=== PATIENT | female | born 1995 | race Caucasian/White ===

== ENCOUNTER 2019-08-05 19:49 | Emergency (ER) | payer OTHER ==
[2019-08-05 19:54] VITALS: BP 132/64
--- NOTE | 2019-08-05 20:23 | ER Document Report ---
HPI - HPI Patient complains to provider of: anxiety Time Seen by Provider: 08/05/19 20:07 Pain Level: Denies Context: 23-year-old female presents the emergency department with chief complaint of anxiety depression. Patient states that she is a spouse and her is deployed to an area where they cannot contact each other. She said that she has been struggling this for years and she said that she did not know what to do but said she needed help. Patient adamantly denies that she does not want to harm herself or harm others. No thoughts or plans of suicide. Patient states that she does have a mental health appointment on August 16 but stated that she needed something in the interim. Patient said that in the past she was prescribed Zoloft but stopped taking it abruptly on her own because she was having side effects from it. Patient denies any other symptoms. - REPRODUCTIVE Reproductive: DENIES: : Past Medical History - Social History Smoking Status: Never Smoker Frequency of alcohol use: Rare Drug Abuse: None Family History: None Patient has suicidal ideation: No Patient has homicidal ideation: No Vertical Provider Document - CONSTITUTIONAL Notes: PHYSICAL EXAMINATION: Reviewed vital signs and charting by RN GENERAL: Alert, interacts well. No acute distress. HEAD: Normocephalic, atraumatic. EYES: Pupils equal and round. Extraocular movements intact. ENT: Oral mucosa moist, tongue midline. NECK: Full range of motion. Trachea midline. LUNGS: Clear to auscultation bilaterally, no wheezes, rales, or rhonchi. No respiratory distress. HEART: Regular rate and rhythm. No murmur ABDOMEN: soft, non-tender. No distention. Bowel sounds present EXTREMITIES: Moves all 4 extremities spontaneously. No edema, No cyanosis. PSYCH: Normal affect, tearful, depressed mood, linear thought process SKIN: Warm, dry, normal turgor. No rashes or lesions noted. Course - Re-evaluation Re-evalutation: 08/05/19 20:22 Discussed with patient at length her options. She denies SI/HI and denies any auditory or visual hallucinations. She is just seeking help as she feels depressed and has anxiety. I told her that she could stay here voluntarily until the morning and see the mental health team or she could go home tonight and then return in the morning and see the mental health team then. She opted to discharge - Vital Signs Vital signs: Temp Pulse Resp BP Pulse Ox 98.2 F 72 16 132/64 H 100 08/05/19 19:53 08/05/19 19:53 08/05/19 19:53 08/05/19 19:53 08/05/19 19:53 Discharge - Discharge Clinical Impression: Anxiety Condition: Good Disposition: HOME, SELF-CARE Instructions: Anxiety ([facility]) Additional Instructions: Please return to the emergency department tomorrow morning and check in so the emergency department mental health team can be consulted and assist you with services and/or medications. If in the meantime you start feeling worse, you have thoughts of harming herself or harming others, or you have any other concerns.
== END 2019-08-05 20:30 | disposition home or self-care (01) ==
LOC: ER 19:49
DX: F41.9 Anxiety disorder, unspecified (principal); F32.9 Major depressive disorder, single episode, unspecified; T43.226A Underdosing of selective serotonin reuptake inhibitors, initial encounter; Z91.128 Patient's intentional underdosing of medication regimen for other reason; Z91.14 Patient's other noncompliance with medication regimen; Z63.79 Other stressful life events affecting family and household
CPT/HCPCS: 99283

== ENCOUNTER 2019-08-06 07:06 | Emergency (ER) | payer OTHER ==
--- NOTE | 2019-08-06 08:23 | ER Document Report ---
ED General - General TRAVEL OUTSIDE OF THE [place] IN LAST 30 DAYS: No - General Chief Complaint: Anxiety Stated Complaint: ANXIETY Time Seen by Provider: 08/06/19 07:41 Primary Care Provider: [facility] [Outside] - Follow up as needed - HPI Notes: Patient is a 23-year-old female who presents to the emergency department for evaluation of anxiety. She was actually seen here last night, had laboratory investigations performed, was medically cleared. She was told to return here for her anxiety. She states is been a long-standing issue. In the past she was placed on Zoloft. She states she thought it was helping at the first, but she states "then I started to feel nothing, then I started to feel worse." She took herself off of that medication. She is been off it for approximately 6 to 8 months. She denies any suicidal or homicidal ideation. No visual or auditory hallucination. 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 She has been in therapy in the past. She is just looking for help with her anxiety at this time, is amenable to the idea of medications if necessary. (DORIS MORALES) - Related Data Allergies/Adverse Reactions: cephalexin [From Keflex] Allergy (Verified 08/06/19 07:14) Past Medical History - General Information source: Patient - Social History Smoking Status: Never Smoker Chew tobacco use (# tins/day): No Frequency of alcohol use: Occasional Drug Abuse: None Family History: None Patient has suicidal ideation: No Patient has homicidal ideation: No Psychiatric Medical History: Reports: Hx Anxiety, Hx Depression Past Surgical History: Reports: Hx Orthopedic Surgery - R ankle arthroscopy Review of Systems - Review of Systems Constitutional: No symptoms reported EENT: No symptoms reported Cardiovascular: No symptoms reported Respiratory: No symptoms reported Gastrointestinal: No symptoms reported Genitourinary: No symptoms reported Musculoskeletal: No symptoms reported Skin: No symptoms reported Neurological/Psychological: See HPI Physical Exam - Vital signs Vitals: Temp Pulse Resp BP Pulse Ox 97.6 F 74 16 115/66 100 08/06/19 07:10 08/06/19 07:10 08/06/19 07:10 08/06/19 07:10 08/06/19 07:10 - Notes Notes: Vital signs reviewed, please refer to chart. Head is normocephalic, atraumatic. Pupils equal round, reactive to light. Neck is supple without meningismus. Heart is regular rate and rhythm. Lungs are clear to auscultation bilaterally. Abdomen is soft, nontender, normoactive bowel sounds throughout. Extremities without cyanosis, clubbing. Posterior calves are nontender. Peripheral pulses are equal. Skin is warm and dry. Patient is pleasant, cooperative, makes good eye contact. (DORIS MORALES) Course - Re-evaluation Re-evalutation: 08/06/19 08:23 Patient presents the emergency department for evaluation. She was actually seen here last night. Her vital signs are unremarkable. She is not suicidal or homicidal. She just needs help with her anxiety. Patient is medically clear. Awaiting psychosocial evaluation. 08/06/19 13:58 Patient has psychosocial evaluation. Celexa recommended. She is outpatient counseling on scheduled. Patient feels stable for discharge. (DORIS MORALES) - Vital Signs Vital signs: Temp Pulse Resp BP Pulse Ox 97.6 F 74 16 115/66 100 08/06/19 07:10 08/06/19 07:10 08/06/19 07:10 08/06/19 07:10 08/06/19 07:10 Discharge - Discharge Clinical Impression: Anxiety Condition: Stable Disposition: HOME, SELF-CARE Additional Instructions: You have been evaluated by both medical and behavioral health teams and have been deemed appropriate for discharge. Medication recommendations have been provided. Please follow up with your identified providers, [facility], for medication management and [facility] for mental health services. You have been provided with a community mental health resource list. Anxiety The physician feels that some of your health problems are being caused by anxiety. Anxiety affects your health in many ways. Anxiety alone can cause palpitations, sweats, chest pains, abdominal pains, shortness of breath, and headaches. It contributes to ulcer disease, high blood pressure, irritable bowel syndrome, and has been shown to cause flare-ups of many other diseases. Anxiety is not a simple disorder to treat. If the anxiety is due to recent life stresses, you may simply need time to "work through" the changes. If the anxiety is due to an underlying unhappiness with yourself or due to psychiatric disturbance, professional help will be needed. Your physician can refer you for further help if needed. Anti-anxiety medication is occasionally given if the stress is acute or if you are having trouble sleeping. Chronic or frequent use of these medications is not a good idea because the body becomes reliant on it, preventing you from dealing with life's normal stresses.You have also been provided with the contact information for mobile crisis, as needed. Depression Your evaluation reveals that you have mental depression. While symptoms may be vague, they often include disturbance of sleep, fatigue, loss of appetite, and general loss of interest in life. While depression may be a side effect of drugs, or a reaction to a major change in your life, many cases have no known cause. If depression is acute, and related to a major loss in your life, you can expect it to clear completely with time. If you have been depressed a long time, are prone to repeated bouts of depression or low mood, or have been thinking of suicide, get help. Depression can be treated with anti-depressant medication and counselling. Long-term depression will often take a few weeks to clear, even with appropriate medication. Follow-up care is important. Contact your physician, the hospital emergency center, crisis line, or your counsellor if you are losing control or having self-destructive thoughts. Referrals: [facility] [Outside] - Follow up as needed
[2019-08-06 14:24] VITALS: BP 113/70
--- NOTE | 2019-08-06 19:34 | PSYCHOLOGICAL NOTE ---
Psych Note - Psych Note Date seen by psych provider: 08/06/18 Time seen by psych provider: 10:00 Psych Note: Reason for consult: Anxiety Patient presented to ED via POV. Patient presented to ED via POV on 08/05/2019 for anxiety. Patient was informed behavioral health team was gone for the day and would return the following morning. Patient left ED and returned the following morning, 08/06/19. Patient reports, really bad anxiety attacks. Patient shared she can feel them coming on. Patient reported chronic depression and anxiety issues, especially around her menstrual period. Patient denied prior mental health treatment. Patent was on Zoloft for 3 months approximately 1.5 years ago. Patient shared her anxiety and depression symptoms increased when spouse left for training. Patient denies suicidal and homicidal ideations. Patient denies auditory and visual hallucinations. Patient eluded to abandonment issues in the past and other stressors from childhood that are influencing her present functioning. Patient is alert and oriented to person, place, time and circumstance. Mood is euthymic with congruent affect as evidenced by smiling, laughing and engaging with clinician. Patient denies suicidal and homicidal ideation. Delusions are absent and behavior is congruent with an intact reality based presentation (i.e. organized and linear thought processes). Patient denies auditory and visual hallucinations. There is no observed behavior that suggests patient is responding to internal stimuli. Eye contact is good. Conversational speech is within normal rate, tone, and prosody. Intellectual ability appears to be within average range. Attention and concentration are good. Insight, judgment, and impulse control are fair. DSM Diagnosis: By history, Depression By history, Anxiety Medication recommendations per [facility] contracted psychiatrist Dr. Katia CEBALLOS is as follows: Add Celexa 20MG, to be taken daily Impression/Plan: Patient is cleared from acute psychiatric services. Patient does not meet IVC criteria per [place] GS 122C. Patient denies auditory and visual hallucinations. Patient denies current suicidal and homicidal ideations. At this time, patient is demonstrating insight and judgment into her current situation and is able to thoughtfully and purposefully participate in plan of care development. Medication recommendations have been provided. Patient has a strong support system with friends in the area. Patient is gainfully employed. Patient has mental health appointment scheduled 08/16/2019. While in the ED, patient scheduled medication management appointment with [facility]. Dr. King was consulted on the care and management of this patient; attending physician is in agreement with recommendations and disposition.
== END 2019-08-06 14:24 | disposition home or self-care (01) ==
LOC: ER 07:06
DX: F41.9 Anxiety disorder, unspecified (principal); Z79.899 Other long term (current) drug therapy
CPT/HCPCS: 99284

== ENCOUNTER 2020-02-23 18:02 | Emergency (ER) | payer OTHER ==
[2020-02-23] MEDS ORDERED: ACETAMINOPHEN 325 MG TABLET PO ONE (18:15)
--- NOTE | 2020-02-23 18:16 | ER Document Report ---
ED Medical Screen (RME) - General Chief Complaint: Flank Pain Stated Complaint: ABDOMINAL PAIN Time Seen by Provider: 02/23/20 18:11 Mode of Arrival: Ambulatory Information source: Patient Notes: HPI; 24-year-old female 1 presents to the emergency room complaining of left-sided abdominal pain that radiates into her back and into her left groin. States pain started last night has been more persistent today, describes it as cramping, complains of nausea but no vomiting. LMP 01/15/2020. Did not take any medications for her pain. She denies any urinary symptoms, denies any vaginal bleeding, no vaginal discharge. PE: Alert and oriented x3. No acute distress noted. Lungs clear to auscultation without rales rhonchi wheezes, heart regular rate rhythm without murmurs rubs or gallops, abdomen soft nontender nontender to palpation. No organomegaly, no guarding, no rebound, bowel sounds x4 I have greeted and performed a rapid initial assessment of this patient. A comprehensive ED assessment and evaluation of the patient, analysis of test results and completion of medical decision making process will be conducted by an additional ED providers. TRAVEL OUTSIDE OF THE [place] IN LAST 30 DAYS: No - Related Data Allergies/Adverse Reactions: cephalexin [From Keflex] Allergy (Verified 08/06/19 07:14) Past Medical History - Social History Chew tobacco use (# tins/day): No Frequency of alcohol use: None Drug Abuse: None Psychiatric Medical History: Reports: Hx Anxiety, Hx Depression Past Surgical History: Reports: Hx Orthopedic Surgery - R ankle arthroscopy Physical Exam - Vital signs Vitals: Temp Pulse Resp BP Pulse Ox 98.4 F 81 14 140/75 H 99 02/23/20 18:07 02/23/20 18:07 02/23/20 18:07 02/23/20 18:07 02/23/20 18:07 Course - Vital Signs Vital signs: Temp Pulse Resp BP Pulse Ox 98.4 F 81 14 140/75 H 99 02/23/20 18:11 02/23/20 18:07 02/23/20 18:07 02/23/20 18:07 02/23/20 18:07
[2020-02-23 18:43] LABS: ABSOLUTE BASOPHILS # (AUTO) 0.1 10^3/uL (0.0-0.2); ABSOLUTE LYMPHOCYTES (AUTO) 2.1 10^3/uL (0.5-4.7); ABSOLUTE MONOCYTES (AUTO) 0.8 10^3/uL (0.1-1.4); BASOPHILS % (AUTO) 0.4 % (0-2); EOSINOPHILS % (AUTO) 0.1 % (0-6); HEMATOCRIT 37.8 % (36.0-47.0); HEMOGLOBIN 13.3 g/dL (12.0-15.5); LYMPHOCYTES % (AUTO) 14.8 % (13-45); MEAN CORPUSCULAR HGB CONC 35.3 g/dL (32.0-36.0); MEAN CORPUSCULAR VOLUME 88 fl (80-97); PLATELET COUNT 224 10^3/uL (150-450); RED CELL DISTRIBUTION WIDTH 12.4 % (11.5-14.0); SEGMENTED NEUTROPHILS % (AUTO) 78.7 % (42-78); TOTAL CELLS COUNTED % (AUTO) 100 %
[2020-02-23 18:54] LABS: APPEARANCE,URINE SLIGHTLY-CLOUDY; BILIRUBIN,URINE NEGATIVE (NEGATIVE); COLOR,URINE YELLOW; GLUCOSE, URINE NEGATIVE (NEGATIVE); KETONES,URINE NEGATIVE (NEGATIVE); LEUKOCYTE ESTERASE,URINE NEGATIVE (NEGATIVE); NITRITE,URINE NEGATIVE (NEGATIVE); PROTEIN,URINE NEGATIVE (NEGATIVE); URINE SPECIFIC GRAVITY 1.019; UROBILINOGEN,URINE NEGATIVE mg/dL (<2.0)
[2020-02-23 19:00] LABS: ALBUMIN 4.6 g/dL (3.5-5.0); ALKALINE PHOSPHATASE 52 U/L (38-126); ANION GAP 7 (5-19); ASPARTATE AMINO TRANSFERASE 21 U/L (14-36); BILIRUBIN,TOTAL 0.7 mg/dL (0.2-1.3); BLOOD UREA NITROGEN 14 mg/dL (7-20); CALCIUM 9.2 mg/dL (8.4-10.2); CARBON DIOXIDE 24 mmol/L (22-30); CHLORIDE 104 mmol/L (98-107); GLUCOSE 91 mg/dL (75-110); POTASSIUM 3.8 mmol/L (3.6-5.0); TOTAL PROTEIN 7.6 g/dL (6.3-8.2)
--- NOTE | 2020-02-23 19:22 | RADIOLOGY REPORT (SQ) ---
EXAM DESCRIPTION: U/S OB TRANSVAG W/DOPPLER IMAGES COMPLETED DATE/TIME: 02/23/2020 7:09 pm REASON FOR STUDY: abdominal pain/ COMPARISON: None. TECHNIQUE: Transvaginal static and realtime grayscale images acquired of the pelvis. Additional deb cted spectral and color Doppler images recorded. All images stored on PACs. bHCG: Pending. CLINICAL DATES: SHEILA: 10/21/2019 EGA: 5 weeks 4 days LIMITATIONS: None. FINDINGS: FETUS: No Living intrauterine . GESTATIONAL SAC: Not visualized. YOLK SAC: Not visualized. UTERUS: The uterus measures 6.8 x 4.2 x 5.1 cm. No masses. No anomalies. CERVICAL LENGTH: 2.3 cm Closed. RIGHT ADNEXA: The right ovary measures 2.5 x 2.9 x 2.4 cm. Normal ovary with normal vascular flow. No adnexal free fluid. No adnexal masses. LEFT ADNEXA: The left ovary measures 3.1 x 2.7 x 2.4 cm. Normal ovary with normal vascular flow. No adnexal free fluid. No adnexal masses. FREE FLUID: None. OTHER: The endometrial stripe is thickened and heterogenous in appearance, measures 17.0 mm. IMPRESSION: 1. No LIVING INTRAUTERINE . 2. The endometrial cavity is thickened and heterogenous in appearance. Clinical correlation, correl ation with lab values and short-term follow-up examination suggested. TECHNICAL DOCUMENTATION: JOB ID: [id number] 2010 [employer]- All Rights Reserved rev-02/26 Reading location - IP/workstation name: [email or web address]
--- NOTE | 2020-02-23 20:16 | ER Document Report ---
ED GI/ - General Chief Complaint: Flank Pain Stated Complaint: ABDOMINAL PAIN Time Seen by Provider: 02/23/20 18:11 Primary Care Provider: LUCIANO ELLIOTT FNP-C [Primary Care Provider] - Follow up as needed Mode of Arrival: Ambulatory Information source: Patient Notes: 23-year-old female presented to ED for complaint of left-sided abdominal pain that radiates to her back and to her groin. She states she is 1 para 0. She states she has been take a test at home since Thursday and they have been very faintly positive and in line is getting a little darker each day. She states last menstrual period was 01/15/2020. She states she does have some mild cramping but no vomiting no vaginal bleeding. She is alert oriented respirations regular nonlabored speaking in full sentences. She is in no acute distress at this time. She was seen in triage labs were completed. She does have a very low hCG with no IUP noted. Her hCG is too low to have a IUP as yet. I have discussed with her the fact that she is extremely early and that we will repeat a test in 48 hours to see if her levels are going up or down. I have informed her I would be here at the hospital from data midnight in 2 days when she gets this test and she can call and asked me for the results. Patient verbalized understanding and agreement with this treatment plan. TRAVEL OUTSIDE OF THE [place] IN LAST 30 DAYS: No - HPI Patient complains to provider of: Abdominal pain, Onset: Yesterday Timing/Duration: Intermittent Quality of pain: Cramping Severity at maximum: Moderate Severity in ED: Mild Pain Level: 1 Location: Left flank, Pelvis Vaginal bleeding (Compared to normal period): None LMP: 01/15/2020 : 1 Para: 0 ABO type: a Rh factor: neg OB ultrasound done: Yes Associated symptoms: Other - pelvic and flank cramping intermittently Exacerbated by: Denies Relieved by: Denies Similar symptoms previously: No Recently seen / treated by doctor: No - Related Data Allergies/Adverse Reactions: cephalexin [From Keflex] Allergy (Verified 08/06/19 07:14) Past Medical History - General Information source: Patient - Social History Smoking Status: Never Smoker Chew tobacco use (# tins/day): No Frequency of alcohol use: None Drug Abuse: None Lives with: Family Family History: None Patient has homicidal ideation: No - Past Medical History Cardiac Medical History: Reports: None Pulmonary Medical History: Reports: None EENT Medical History: Reports: None Neurological Medical History: Reports: None Endocrine Medical History: Reports: None Renal/ Medical History: Reports: None Malignancy Medical History: Reports: None GI Medical History: Reports: None Musculoskeletal Medical History: Reports Hx Musculoskeletal Trauma Skin Medical History: Reports None Psychiatric Medical History: Reports: Hx Anxiety, Hx Depression Traumatic Medical History: Reports: Hx Fractures - Ankle Infectious Medical History: Reports: None Past Surgical History: Reports: Hx Orthopedic Surgery - R ankle arthroscopy Review of Systems - Review of Systems Constitutional: No symptoms reported EENT: No symptoms reported Cardiovascular: No symptoms reported Respiratory: No symptoms reported Genitourinary: Flank pain - Left Female Genitourinary: , Other - Cramping Musculoskeletal: No symptoms reported Skin: No symptoms reported Hematologic/Lymphatic: No symptoms reported Neurological/Psychological: No symptoms reported -: Yes All other systems reviewed and negative Physical Exam - Vital signs Vitals: Temp Pulse Resp BP Pulse Ox 98.4 F 81 14 140/75 H 99 02/23/20 18:07 02/23/20 18:07 02/23/20 18:07 02/23/20 18:07 02/23/20 18:07 Interpretation: Normal - General General appearance: Appears well, Alert - HEENT Head: Normocephalic, Atraumatic Eyes: Normal Pupils: PERRL - Respiratory Respiratory status: No respiratory distress Chest status: Nontender Breath sounds: Normal Chest palpation: Normal - Cardiovascular Rhythm: Regular Heart sounds: Normal auscultation Murmur: No - Abdominal Inspection: Normal Distension: No distension Bowel sounds: Normal Tenderness: Tender - Mild left abdomen pelvis tenderness no guarding no rebound. Organomegaly: No organomegaly - Back Back: Normal, Nontender - Extremities General upper extremity: Normal inspection, Nontender, Normal color, Normal ROM, Normal temperature General lower extremity: Normal inspection, Nontender, Normal color, Normal ROM, Normal temperature, Normal weight bearing. No: Manisha's sign - Neurological Neuro grossly intact: Yes Cognition: Normal Orientation: AAOx4 Duke Coma Scale Eye Opening: Spontaneous Paramjit Coma Scale Verbal: Oriented Paramjit Coma Scale Motor: Obeys Commands Paramjit Coma Scale Total: 15 Speech: Normal Motor strength normal: LUE, RUE, LLE, RLE Sensory: Normal - Psychological Associated symptoms: Normal affect, Normal mood - Skin Skin Temperature: Warm Skin Moisture: Dry Skin Color: Normal Course - Re-evaluation Re-evalutation: 02/24/20 00:15 Discussed labs and ultrasound with patient. Written report of labs and ultrasound given to patient. Patient was instructed to return to the hospital in 48 hours to get a re-draw on her hCG. I have informed her I would be in the hospital from 30 to midnight on Thursday and she could call the ER and I will give her the results of her hCG. Patient was instructed to return to the ED for any vaginal bleeding. She is not bleeding at this time. - Vital Signs Vital signs: Temp Pulse Resp BP Pulse Ox 98.6 F 85 16 117/74 98 02/23/20 21:32 02/23/20 21:32 02/23/20 21:32 02/23/20 21:32 02/23/20 21:32 - Laboratory Result Diagrams: 02/23/20 18:29 02/23/20 18:29 Laboratory results interpreted by me: 02/23/20 02/23/20 02/23/20 18:29 18:29 18:29 WBC 14.0 H Absolute Neuts (auto) 11.0 H Seg Neutrophils % 78.7 H Sodium 135.3 L Beta HCG, Quant 675.60 H Urine Ascorbic Acid 20 H - Diagnostic Test Radiology reviewed: Image reviewed, Reports reviewed Discharge - Discharge Clinical Impression: Abdominal pain affecting Condition: Stable Disposition: HOME, SELF-CARE Additional Instructions: Pelvic Pain in Lower abdominal pain during can have many causes. We look for ser ious causes such as appendicitis, tubal , miscarriage, placental separation, or urinary tract infection. Less serious causes of pain include corpus luteum cyst (ovarian cyst of ) or stretching of the pelvic tissues by the enlarging uterus. Sometimes the pain comes from the bowels. If no specific cause for the pain is found, we attribute the pain to stretching of the uterine ligaments. This is called "round ligament strain." It is not dangerous. Just rest until the pain goes away. Call us or come back for reexamination if any problems occur, such as: (1) Pain that becomes more severe, steady, or becomes concentrated in one specific area. Also, pain that is more severe with movement or coughing. (2) Vomiting that persists or becomes more frequent. (3) Blood in the vomitus, urine, or bowel movements. Blood in the stool may have a tarry or black appearance. (4) Shaking chills or fever greater than 100 degrees. (5) The abdomen becomes more distended or swollen. (6) Bowel movements cease. (7) Vaginal bleeding. Acetaminophen Acetaminophen may be taken for pain relief or fever control. It's much safer than aspirin, offering a wider range of "safe" dosages. It is safe during . Some brand names are Tylenol, Panadol, Datril, Anacin 3, Tempra, and Liquiprin. Acetaminophen can be repeated every four hours. The following are maximum recommended dosages: WEIGHT Dose Drops Elixir Chewable(80mg) (LBS.) drprs=droppers tsp=teaspoon 6 40 mg .4 ml (1/2) 6-11 80 mg .8 ml (full) 1/2 tsp 1 tab 12-16 120 mg 1 1/2 drprs 3/4 tsp 1 1/2 tabs 17-23 160 mg 2 drprs 1 tsp 2 tabs 24-30 240 mg 3 drprs 1 1/2 tsp 3 tabs 30-35 320 mg 2 tsp 4 tabs 36-41 360 mg 2 1/4 tsp 4 1/2 tabs 42-47 400 mg 2 1/2 tsp 5 tabs 48-53 480 mg 3 tsp 6 tabs 54-59 520 mg 3 1/4 tsp 6 1/2 tabs 60-64 560 mg 3 1/2 tsp 7 tabs 65-70 600 mg 3 3/4 tsp 7 1/2 tabs 71-76 640 mg 4 tsp 8 tabs 77-82 720 mg 4 1/2 tsp 9 tabs 83-88 800 mg 5 tsp 10 tabs >89 pounds or adults 650 mg to 900 mg Acetaminophen can be repeated every four hours. Maximum daily dose not to exceed 4000 mg. These maximum recommended dosages are slightly higher than the dosages written on the product container, but these dosages are very safe and well below the toxic dosage for acetaminophen. REPEAT BLOOD TEST: At this time, it is uncertain if you have a viable . During the first three months of , the hormone produced from the placenta will steadily rise, usually doubling in value every 2 - 3 days. In order to determine if your is viable and likely be succesful, a repeat of this blood test for the hormone is recommended in 2 - 3 days. An order for this test to be done as an outpatient is being provided. After you have this repeat test done, call your doctor or call us for the results. If the value of the test is increasing as would be expected in a normal , then your is likely to be ok. However, if the value of the test is declining, it will suggest something has happened with your and it will not likely be a successful . FOLLOW-UP CARE: If you have been referred to a physician for follow-up care, call the physicians office for an appointment as you were instructed or within the next two days. If you experience worsening or a significant change in your symptoms (very heavy bleeding with large clots of blood, passage of tissue, more severe abdominal / pelvic pain or cramping, feeling faint or severe weakness, fever, etc.), notify the physician immediately or return to the Emergency Department at any time for re-evaluation. OBSTETRIC-GYNECOLOGIC (OB-FIRE CAPTAIN MARINE) PHYSICIANS IN [place]: [facility] [address] [place] [address] [phone] For active duty and dependents diagnosed with a threatened or miscarriage, you should follow up in the following manner: Standard patients who have a local civilian provider should follow up with that provider. Patients of the Family Practice Clinic should call your Team Nurse at 8:00 am the following morning for further instructions. If you are neither a Standard patient nor a patient of the Family Practice Clinic, you should follow up at the [facility] ([facility]). Patients already enrolled in the [facility] OB Clinic, Prime patients not assigned to the Family Practice Clinic, and Active Duty patients not assigned to Family Practice Clinic should report to the [facility] Lab at 8:00 am the next morning that the [facility] OB Clinic is open and then you will be seen in the OB Clinic at 11:00 am. Forms: Elevated Blood Pressure, Follow-Up Laboratory Testing Referrals: LUCIANO ELLIOTT FNP-C [Primary Care Provider] - Follow up as needed
[2020-02-23 21:33] VITALS: BP 117/74
== END 2020-02-23 20:55 | disposition home or self-care (01) ==
LOC: ER 18:02
DX: O26.891 Other specified pregnancy related conditions, first trimester (principal); R10.9 Unspecified abdominal pain; R10.2 Pelvic and perineal pain; Z3A.01 Less than 8 weeks gestation of pregnancy
CPT/HCPCS: 36415; 76817; 80053; 81001; 84702; 85025; 86900; 86901; 93976; 99284

== ENCOUNTER → 2020-02-25 | Outpatient (CLI) | payer OTHER | LOC: OD 09:08 | PROVIDERS: ATTEND Nurse Practitioner Family | DX: O26.891 Other specified pregnancy related conditions, first trimester (principal); Z3A.00 Weeks of gestation of pregnancy not specified | CPT/HCPCS: 36415; 84702 ==

== ENCOUNTER 2020-11-02 11:56 | Outpatient (CLI) | payer OTHER ==
--- NOTE | 2020-11-02 12:41 | Non Stress Test Report ---
Non Stress Test Datetime Report Generated by CPN: 11/02/2020 12:41 DEMOGRAPHIC Test Number: 1 EGA NST: 40.3 INDICATION Indication for Study (NST) Other: Repeat NST VITAL SIGNS Temperature - NST: 97.3 MONITORING Monitor Explained: Monitor Explained; Patient Verbalized Understanding Time on Monitor: 11/02/2020 12:03 Time off Monitor: 11/02/2020 12:29 NST Duration: 26 NST INTERVENTIONS NST Interventions: PO Hydration; Reposition Patient Physician Notified NST: J. Vasquez, CNM BABY A: [id number] BABY A Movement : Present Contraction Frequency : 0 FHR Baseline : 135 Accelerations : 15X15 Decelerations : None Variability : Moderate 6-25bpm NST Review: Meets Criteria for Reactive NST NST Review and Verified By : Bebe Bhat RN NST Results: Reactive NST REPORT Report Trigger: Send Report
== END 2020-11-02 12:31 | disposition home or self-care (01) ==
LOC: LC 11:56
PROVIDERS: ATTEND Obstetrics & Gynecology
DX: Z34.03 Encounter for supervision of normal first pregnancy, third trimester (principal); Z3A.40 40 weeks gestation of pregnancy
CPT/HCPCS: 59025

== ENCOUNTER 2020-11-05 10:50 | Inpatient (IN) | payer OTHER ==
[2020-11-05] MEDS ORDERED: RINGERS SOLUTION,LACTATED 1,000 ML IV PRN (11:16)
[2020-11-05] MEDS ORDERED: RINGERS SOLUTION,LACTATED 1,000 ML IV ONE (11:16)
[2020-11-05] MEDS ORDERED: OXYTOCIN 10 UNIT/ML VIAL ONE (11:25)
[2020-11-05] MEDS ORDERED: MISOPROSTOL 0.2 MG TABLET ONE (11:25)
[2020-11-05] MEDS ORDERED: OXYTOCIN/0.9 % SODIUM CHLORIDE 30 UNIT/500 ML RTUINJ ONE (11:26)
[2020-11-05] MEDS ORDERED: LIDOCAINE 1% INJ-PF (10 MG/ML) 30 ML SDV ONE (11:26)
--- NOTE | 2020-11-05 11:32 | Admission Physical ---
Datetime Report Generated by CPN: 11/05/2020 11:32 CURRENT ADMISSION Chief Complaint: Uterine Contractions Admit Impression : Term, Intrauterine ; Active Labor Admit Plan: Admit to Unit ALLERGIES Medication Allergies: Yes Medication Allergies: cephalexin (11/05/2020) Latex: Latex Allergies OBSTETRICAL HISTORY EDC: 10/30/2020 00:00 : 1 Para: 0 Term: 0 : 0 SAB: 0 IAB: 0 Ectopic: 0 Livin Cesareans: 0 VBACs: 0 Multiple Births: 0 Gestational Diabetes: No Rh Sensitization: No Incompetent Cervix: No JULIO C: No Infertility: No ART Treatment: No Uterine Anomaly: No IUGR: No Hx Previous C/S: No Macrosomia: No Hx Loss/Stillborn: No PIH: No Hx : No Placenta Previa/Abruption: No Depression/PP Depression: No PTL/PROM: No Post Hemorrhage: No Current Procedures: Ultrasound; NST Obstetrical History Comments: G1-Current SEE RECORDS Alcohol: No Marijuana : No Cocaine: No Other Illicit Drugs: No Cigarettes: Never Smoker. [id number] MEDICAL HISTORY Diabetes: No Blood Transfusion: No Pulmonary Disease (Asthma, TB): Yes Breast Disease: No Hypertension: No Hybrid Corn Breeder Surgery: No Heart Disease: No Hosp/Surgery: No Autoimmune Disorder: No Anesthetic Complications: No Kidney Disease: No Abnormal Pap Smear: No Neuro/Epilepsy: No Psychiatric Disorders: No Other Medical Diseases: No Hepatitis/Liver Disease: No Significant Family History: No Varicosities/Phlebitis: No Trauma/Violence : No Thyroid Dysfunction: No Medical History Comments: Asthma, cleft palate, anxiety/depression- used to take celexa before INFECTIOUS HISTORY Gonorrhea: No Genital Herpes: No Chlamydia: Yes Tuberculosis: No Syphilis: No Hepatitis: No HIV/AIDS Exposure: No Rash or Viral Illness: No HPV: No Infectious History Comments: Chlamydia + 03/12/2020, negative 09/22/2020 PHYSICAL EXAM General: Normal HEENT: Normal Neurologic: Normal Thyroid: Normal Heart: Normal Lungs: Normal Breast: Normal Back: Normal Abdomen: Normal Genitourinary Exam: Normal Extremities: Normal DTRs: Normal Pelvic Type: Adequate Vital Signs: Reviewed MEMBRANES Membranes: Intact FETUS A EGA: 40.6 Monitoring: External US FHR- Baseline: 140 Variability: Moderate 6-25bpm Accelerations: 10X10 Admit Comment: presents from home at 40.6 wks c/o contractions. Ve per RN pt is 6 cm. Pt desires an epidural. GBS negative. Hx of +chlamydia with negative KELBY. EFW via Leapolds 8 lbs 14 ounces. Plan to admit, pt to get an epidural and then will AROM once pt is comfortable. Attending MD is Dr Diaz and aware of pt status. PLANS FOR LABOR AND DELIVERY Labor and Delivery: None Pain Management: Epidural Feeding Preference: Breast Benefit of Breast Feed Discussed: Yes Circumcision: Yes INFORMED CONSENT Assignment: Nurys Diaz MD Signature: with User ID: [email or web address] : with User ID: [email or web address]
[2020-11-05 12:02] LABS: ABSOLUTE LYMPHOCYTES (AUTO) 1.6 10^3/uL (0.5-4.7); ABSOLUTE MONOCYTES (AUTO) 0.9 10^3/uL (0.1-1.4); ABSOLUTE NEUT (AUTO) 13.5 10^3/uL (1.7-8.2); BASOPHILS % (AUTO) 0.1 % (0-2); HEMATOCRIT 37.5 % (36.0-47.0); HEMOGLOBIN 12.5 g/dL (12.0-15.5); LYMPHOCYTES % (AUTO) 9.7 % (13-45); MEAN CORPUSCULAR HEMOGLOBIN 29.9 pg (27.0-33.4); MEAN CORPUSCULAR HGB CONC 33.4 g/dL (32.0-36.0); MEAN CORPUSCULAR VOLUME 90 fl (80-97); MONOCYTES % (AUTO) 5.6 % (3-13); PLATELET COUNT 174 10^3/uL (150-450); RED BLOOD COUNT 4.19 10^6/uL (3.72-5.28); RED CELL DISTRIBUTION WIDTH 13.7 % (11.5-14.0); SEGMENTED NEUTROPHILS % (AUTO) 84.6 % (42-78); TOTAL CELLS COUNTED % (AUTO) 100 %; WHITE BLOOD COUNT 15.9 10^3/uL (4.0-10.5)
[2020-11-05 12:09] LABS: APPEARANCE,URINE CLOUDY; BILIRUBIN,URINE NEGATIVE (NEGATIVE); COLOR,URINE YELLOW; GLUCOSE, URINE NEGATIVE (NEGATIVE); KETONES,URINE 20 mg/dL (NEGATIVE); LEUKOCYTE ESTERASE,URINE SMALL (NEGATIVE); NITRITE,URINE NEGATIVE (NEGATIVE); PROTEIN,URINE NEGATIVE (NEGATIVE); URINE SPECIFIC GRAVITY 1.018; UROBILINOGEN,URINE NEGATIVE mg/dL (<2.0)
[2020-11-05 13:00] LABS: URINE AMPHETAMINES SCREEN NEGATIVE; URINE BARBITURATES SCREEN NEGATIVE; URINE BENZODIAZEPINES SCREEN NEGATIVE; URINE COCAINE SCREEN NEGATIVE; URINE MARIJUANA (THC) SCREEN NEGATIVE; URINE METHADONE SCREEN NEGATIVE; URINE PHENCYCLIDINE SCREEN NEGATIVE
[2020-11-05] MEDS ORDERED: ROPIVACAINE HCL 0.2% INJ/PF (2 MG/ML) 20 ML SDV ONE (13:04)
[2020-11-05] MEDS ORDERED: FENTANYL/BUPIVACAINE/NS/PF 300 MCG/150 ML RTUINJ EPI ONE (13:04)
[2020-11-05] MEDS ORDERED: EPHEDRINE SULFATE INJ 50 MG/1 ML AMPULE ONE (13:04)
--- NOTE | 2020-11-05 14:12 | L&D Progress Notes ---
PROGRESS NOTES Datetime Report Generated by CPN: 11/05/2020 14:12 PROGRESS NOTE Impression: Normal Progression of Labor; Reassuring Heart Rate Procedures: Artificial ROM; Sterile Vag Exam Plan: Continue Present Management; Anticipate Vaginal Delivery Vital Signs : Reviewed Comment: Comfortable w/ epidural. VE /-1, AROM w/ clear fluid noted. Position changes encouraged. Anticipate . Attending MD is Dr Diaz LAST VAGINAL EXAM-NURSING Nursing Exam Dilitation: 8.0 Nursing Exam Effacement: 90 Nursing Exam Station: -1 MEMBRANES Membranes: Ruptured Amniotic Fluid Color: Clear FETUS A FHR - Baseline: 145 Monitoring: External US Variability: Moderate 6-25bpm Accelerations: 15X15 FHR Category: Category I SIGNATURE SIGNATURE: [id number];[id number];[id number] Assignment: Nurys Diaz MD Signature: with User ID: [email or web address] : with User ID: [email or web address]
--- NOTE | 2020-11-05 16:41 | L&D Progress Notes ---
PROGRESS NOTES Datetime Report Generated by CPN: 11/05/2020 16:41 PROGRESS NOTE Impression: Normal Progression of Labor Procedures: Sterile Vag Exam Plan: Anticipate Vaginal Delivery Vital Signs : Reviewed Comment: Ve per RN, able to reduce the anterior lip. Preparing to start to push. Anticipate . Dr Joe aware of pts status LAST VAGINAL EXAM-NURSING Nursing Exam Dilitation: 9.0 Nursing Exam Effacement: 90 Nursing Exam Station: 0 MEMBRANES Membranes: Ruptured Amniotic Fluid Color: Clear FETUS A FHR - Baseline: 125 Monitoring: External US Variability: Moderate 6-25bpm Accelerations: 15X15 Decelerations: Variable FHR Category: Category I SIGNATURE SIGNATURE: [id number];[id number];[id number] Assignment: Nurys Diaz MD Signature: with User ID: [email or web address] : with User ID: [email or web address]
[2020-11-05] MEDS ORDERED: BENZOCAINE/MENTHOL AEROSOL SPRAY 56 ML TOP PRN (18:12)
[2020-11-05] MEDS ORDERED: GLYCERIN/WITCH HAZEL LEAF 1 EACH MED..WIPE TP PRN (18:12)
[2020-11-05] MEDS ORDERED: ZOLPIDEM TARTRATE 5 MG TABLET PO PRN (18:12)
[2020-11-05] MEDS ORDERED: MAG HYDROX/AL HYDROX/SIMETH SUSP 30 ML UDCUP PO PRN (18:12)
[2020-11-05] MEDS ORDERED: ACETAMINOPHEN 650 MG SUPP.RECT PR PRN (18:12)
[2020-11-05] MEDS ORDERED: ACETAMINOPHEN 325 MG TABLET PO PRN (18:12)
[2020-11-05] MEDS ORDERED: DIPHENHYDRAMINE HCL 25 MG CAPSULE PO PRN (18:12)
[2020-11-05] MEDS ORDERED: FAMOTIDINE 20 MG TABLET PO PRN (18:12)
[2020-11-05] MEDS ORDERED: PSEUDOEPHEDRINE HCL 30 MG TABLET PO PRN (18:12)
[2020-11-05] MEDS ORDERED: DIBUCAINE 1% OINTMENT 28 GM TP PRN (18:12)
[2020-11-05] MEDS ORDERED: VARICELLA VACC/PF (1350 UNIT/0.5 ML) 0.5 ML VIAL SUBCUT PRN (18:12)
[2020-11-05] MEDS ORDERED: MEASLES,MUMPS&RUBELLA VACC/PF 0.5 ML VIAL SUBCUT PRN (18:12)
[2020-11-05] MEDS ORDERED: DIPH/PERTUSS(ACELL)/TETANUS VAC/PF 0.5 ML SYR (>=10YO) IM PRN (18:12)
[2020-11-05] MEDS ORDERED: OXYTOCIN/0.9 % SODIUM CHLORIDE 30 UNIT/500 ML RTUINJ IV PRN (18:12)
[2020-11-05] MEDS ORDERED: ACETAMINOPHEN WITH CODEINE #3 TABLET PO PRN ×2 (18:12)
[2020-11-05] MEDS ORDERED: MAGNESIUM HYDROXIDE SUSP 30 ML UDCUP PO PRN (18:12)
--- NOTE | 2020-11-05 19:01 | Delivery Summary ---
Del Sum A-C Datetime Report Generated by CPN: 11/05/2020 19:01 DELIVERY PERSONNEL DELIVERY PERSONNEL: [id number] Delivery Doctor:: Nurys Diaz MD Labor and Delivery Nurse:: Christine Giordano RNblanker press operator Nurse:: MARSHALL Gabriel Nursery Nurse:: Teresa Romano RN Student Observers:: Susana Ramirez RN Nursery staff Merchandise Stocker/ROOM SERVER: Nancy Ramires, NEWS [employer] PERSON MATERNAL INFORMATION Delivery Anesthesia: Epidural Medications After Delivery: Pitocin Bolus-Please Comment; Pitocin 30 Units in 500ml NS/D5W Delivery QBL: 50 Maternal Complications: None LABOR SUMMARY EDC: 10/30/2020 00:00 No. Babies in Womb: 1 Attempted: No Labor Anesthesia: Epidural LABOR INFORMATION Reason for Induction: Not Applicable Onset of Labor: 11/05/2020 11:13 Complete Dilatation: 11/05/2020 16:34 Oxytocin: N/A Group B Beta Strep: Negative Antibiotics # of Doses: 0 Name of Antibiotic Given: NA Steroids Given: None Reason Steroids Not Administered: Not Applicable MEMBRANES Membranes Rupture Method: Artificial Rupture of Membranes: 11/05/2020 14:02 Length of Rupture (hr): 3.82 Amniotic Fluid Color: Clear Amniotic Fluid Amount: Small Amniotic Fluid Odor: Normal STAGES OF LABOR Stage 1 hr: 5 Stage 1 min: 21 Stage 2 hr: 1 Stage 2 min: 17 Stage 3 hr: 0 Stage 3 min: 3 Total Time in Labor hr: 6 Total Time in Labor min: 41 VAGINAL DELIVERY Episiotomy: None Laceration #1: Perineal Laceration Extension #1: N/A Other Laceration: supraficial laceration not repaired Laceration Repair Note: patient had a vaginal skin tag and she requested removal with the delivery. The base was identified and the tag was ligated with the richey scissors. Two figure of 8 sutures were placed for hemostasis. Sponge Count Correct: N/A Sharps Count Correct: N/A CSECTION DELIVERY Primary Indication: N/A Secondary Indication: N/A CSection Incidence: N/A Labor: N/A Elective: N/A CSection Incision: N/A BABY A INFORMATION Infant Delivery Date/Time: 11/05/2020 17:51 Method of Delivery: Vaginal Nurse Controlled Delivery: No Born in Route : No : N/A Forceps: N/A Vacuum Extraction: N/A Shoulder Dystocia : No PRESENTATION/POSITION BABY A Presentation: Cephalic Cephalic Presentation: Vertex Vertex Position: Right Occipital Anterior Breech Presentation: N/A PLACENTA INFORMATION BABY A Placenta Delivery Time : 11/05/2020 17:54 Placenta Method of Delivery: Spontaneous Placenta Status: Delivered SCORES BABY A Heart Rate 1 min: >100 bpm Resp Effort 1 min: Good Cry Reflex Irritability 1 min: Cough or Sneeze or Pulls Away Muscle Tone 1 min: Active Motion Color 1 min: Body [place], Extremities Blue Resuscitation Effort 1 min: Tactile Stimulation SCORE 1 MIN: 9 Heart Rate 5 min: >100 bpm Resp Effort 5 min: Good Cry Reflex Irritability 5 min: Cough or Sneeze or Pulls Away Muscle Tone 5 min: Active Motion Color 5 min: Body [place], Extremities Blue Resuscitation Effort 5 min: N/A SCORE 5 MIN: 9 Resuscitation Effort 10 min: N/A INFANT INFORMATION BABY A Gestational Age at Delivery: 40.6 Gestational Status: Full Term- 39- 40.6 Weeks Outcome : Liveborn Infant Condition : Stable Sex: Male IDENTIFICATION BABY A Verification Date/Time: 11/05/2020 18:18 ID Band Number: [id number] Mother's Name Verified: Yes RN Verifying Infant: Rozina Camp [facility] Additional Verifying Personnel: Christine Sales RN WEIGHT/LENGTH BABY A Birthweight (gm): 3683 Infant Weight (lb): 8 Weight (oz): 2 Length (in): 20.50 Infant Length (cm): 52.07 CORD INFORMATION BABY A No. Cord Vessels: 3 Nuchal Cord : Around Neck x1, Loose Nuchal Cord- Other: body and foot Cord Blood Taken: Yes-For Storage (Mom's Blood type +) Suction: None ASSESSMENT BABY A Complications: None Physical Findings at Delivery: Molding of the Head; Other Physical Findings- Other: left compound hand Infant Respirations: Appears Normal Skin to Skin: Yes Electrical And Radio Aircraft Mechanic/ALS Called : No Infant Care By: H Romano RN Transferred To: Remains with Mother BABY B INFORMATION : N/A SIGNATURES Signature: with User ID: [email or web address]
--- NOTE | 2020-11-05 19:01 | Birth Certificate Data ---
Cert Data Datetime Report Generated by CPN: 11/05/2020 19:01 CERTIFICATE DATA Delivery Provider: Nurys Diaz MD (11/02/2020 12:05:MARSHALL Gabriel) 47a. Care: Yes (11/02/2020 12:05:Christine Giordano RN) 47b. Date of First Visit: 04/16/2020 00:00 (11/02/2020 12:05:Christine Giordano RN) 47c. Date of Last Visit: 11/02/2020 00:00 (11/02/2020 12:05:Christine Giordano RN) 47d. Number of Visits: 12 (11/02/2020 12:05:Christine Giordano RN) 48a. Number of Prev Live Births: 0 (11/02/2020 12:05:Christine Giordano RN) 48b. Now Livin (11/02/2020 12:05:Christine Giordano RN) 48c. Live Births Now : 0 (11/02/2020 12:05:QS system process) 48e. Losses: 0 (11/02/2020 12:05:Christine Giordano RN) RISK FACTORS IN THIS 49a. Diabetes: No (11/02/2020 12:05:Christine Giordano RN) 49b. Hypertension: No (11/02/2020 12:05:Christine Giordano RN) 49c. Previous Births: 0 (11/02/2020 12:05:Christine Giordano RN) 49d. Stillborns: No (11/02/2020 12:05:Christine Giordano RN) 49d. IUGR: No (11/02/2020 12:05:Christine Giordano RN) 49e. Infertility Treatment: No (11/02/2020 12:05:Christine Giordano RN) 49f. Previous Cesareans: 0 (11/02/2020 12:05:Christine Giordano RN) Mother's Height 50b. Height Inches: 62 (11/05/2020 18:02:QS system process) Mother's Weight 51a. Pre- Weight (lbs): 143 (11/02/2020 12:05:Christine Giordano RN) 51b. Weight at Delivery (lbs): 187 (11/05/2020 11:03:QS system process) 52. Dt Last Normal Menses Began: 10/30/2020 00:00 (11/02/2020 12:05:Christine Giordano RN) Infections Present/Treated 53a. Gonorrhea: No (11/02/2020 12:05:Christine Giordano RN) Results this Hospital Visit : Negative (11/02/2020 12:05:Christine Giordano RN) 53b. Syphilis: No (11/02/2020 12:05:Christine Giordano RN) 53c. Chlamydia: Yes (11/02/2020 12:05:Christine Giordano RN) Results this Hospital Visit: Negative (11/02/2020 12:05:Christine Giordano RN) 53d. Hepatitis B: No (11/02/2020 12:05:Christine Giordano RN) Results this Hospital Visit: Negative (11/02/2020 12:05:Christine Sales, RN) 53e. Hepatitis C: Negative (11/02/2020 12:05:Christinepromise Giordano RN) 53h. Mother Tested for HBsAG: Yes (11/02/2020 12:05:Christine Giordano RN) 53i. Date Tested: 04/16/2020 00:00 (11/02/2020 12:05:Christinepromise Giordano RN) 53j. Test Result: Negative (11/02/2020 12:05:Christine Giordano RN) Obstetric Procedures 54a, b, c. Obstetric Procedures: Ultrasound; NST (11/02/2020 12:05:Christine Sales, RN) Cigarette Smoking Cigarette Smoking: Never Smoker. [id number] (11/02/2020 12:05:Christine Sales, RN) Onset of Labor 56a. PROM >12 Hrs: 3.82 (11/05/2020 14:02:QS system process) 56b. Precipitous Labor <3 Hrs: 6 (11/02/2020 12:05:QS system process) 56c. Prolonged Labor > 20 Hrs: 6 (11/02/2020 12:05:QS system process) 57a. Induction of Labor: N/A (11/02/2020 12:05:MARSHALL Gabriel) 57c. Non-Vertex Presentation A: Vertex (11/02/2020 12:05:MARSHALL Gabriel) 57d. Steroids - Lung Mat: None (11/02/2020 12:05:MARSHALL Gabriel) 57d. Steroids - Lung Mat: Not Applicable (11/02/2020 12:05:MARSHALL Gabriel) 57f. Mat [place] or Temp >100.4: 98.5 (11/02/2020 12:05:Christine Giordano RN) 57g. Moderate/Heavy Meconium: Clear (11/05/2020 14:02:Christine Giordano RN) 57h. Intolerance of Labor: N/A (11/02/2020 12:05:MARSHALL Gabriel) : N/A (11/02/2020 12:05:MARSHALL Gabriel) 57i. Epidural/Spinal Anesthesia: Epidural (11/02/2020 12:05:Rozina Camp, [facility]) Method of Delivery 58a. Forceps - Unsuccessful A: N/A (11/02/2020 12:05:Rozina Camp, [facility]) 58b. Vacuum - Unsuccessful A: N/A (11/02/2020 12:05:Rozina Camp, [facility]) 58c. Presentation at 58c. Presentation at - A : Vertex (11/02/2020 12:05:Rozina Camp, [facility]) 58c. Presentation at - A : N/A (11/02/2020 12:05:Rozina Camp, RN) 58c. Presentation at - A : Cephalic (11/02/2020 12:05:Rozina Camp, [facility]) Final Route and Method of Del 58d. Baby A Route/Delivery: Vaginal (11/05/2020 17:51:Christine Pasquale, RN) 58e. Trial of Labor Attempted: No (11/02/2020 12:05:Rozina Camp, [facility]) 58e. Trial of Labor Attempted A: N/A (11/02/2020 12:05:Rozina Camp, [facility]) 58e. Trial of Labor Attempted B: N/A (11/02/2020 12:05:Rozina Camp, [facility]) Maternal Morbidity 59b. 3rd or 4th Degree Lacs: Perineal (11/02/2020 12:05:Rozina Camp, [facility]) 59b. 3rd or 4th Degree Lacs: supraficial laceration not repaired (11/02/2020 12:05:Rozina Camp, [facility]) Birthweight Baby A: 3683 (11/02/2020 12:05:Christine Pasquale, RN) 60a. Pounds : 8 (11/02/2020 12:05:QS system process) 60b. Ounces: 2 (11/02/2020 12:05:QS system process) 61. GA at Delivery Baby A: 40.6 (11/02/2020 12:05:Rozina Camp, [facility]) : Full Term- 39- 40.6 Weeks (11/02/2020 12:05:QS system process) 62a. 5 Minute Baby A: 9 (11/02/2020 12:05:QS system process)
[2020-11-05] MEDS: IBUPROFEN 800 MG TABLET PO SCH (22:06)
[2020-11-06] MEDS: IBUPROFEN 800 MG TABLET PO SCH ×3 (06:15→21:14)
[2020-11-06 09:10] LABS: HEMATOCRIT 32.5 % (36.0-47.0); HEMOGLOBIN 10.9 g/dL (12.0-15.5); MEAN CORPUSCULAR HGB CONC 33.6 g/dL (32.0-36.0); MEAN CORPUSCULAR VOLUME 89 fl (80-97); PLATELET COUNT 138 10^3/uL (150-450); RED BLOOD COUNT 3.64 10^6/uL (3.72-5.28); RED CELL DISTRIBUTION WIDTH 13.9 % (11.5-14.0); WHITE BLOOD COUNT 14.7 10^3/uL (4.0-10.5)
[2020-11-06] MEDS: FERROUS SULFATE 325 MG TABLET PO SCH ×2 (09:35→17:44)
[2020-11-06] MEDS: DOCUSATE SODIUM 100 MG CAPSULE PO SCH ×2 (09:35→17:44)
[2020-11-06] MEDS: SENNOSIDES/DOCUSATE 8.6-50 MG 1 EACH TABLET PO SCH (09:39)
[2020-11-06] MEDS: PRENATAL VITAMIN W DHA CAPSULE PO SCH (11:24)
--- NOTE | 2020-11-06 11:46 | PDOC PROGRESS REPORT ---
Subjective-OB Progress Note for:: 11/06/20 Subjective: reports bleeding slowing, pain controlled with current meds. denies needs Physical Exam (OB) Vital Signs: Temp Pulse Resp BP Pulse Ox 97.7 F 73 16 121/62 100 11/06/20 10:00 11/06/20 07:39 11/06/20 07:39 11/06/20 07:39 11/06/20 07:39 Intake & Output 11/05/20 11/06/20 11/07/20 06:59 06:59 06:59 Intake Total 280 300 Balance 280 300 Weight 85 kg - Maternal Morbidity 59. Maternal Morbidity (serious complications experinced by the mother associated with labor and delivery: None of the above - Abdomen Description: Soft, Round Hernia Present: No Fundal Description: Firm, Midline Fundal Height: u/u - u/2 - Abdominal Distension: No distension Tenderness: Nontender - Extremities Lower extremities: Manisha's sign - neg Calf: Normal, Nontender Objective-Diagnostic Laboratory: 11/06/20 08:49 11/05/20 11/05/20 11/05/20 11:02 11:30 11:30 WBC 15.9 H RBC 4.19 Hgb 12.5 Hct 37.5 MCV 90 MCH 29.9 MCHC 33.4 RDW 13.7 Plt Count 174 Seg Neutrophils % 84.6 H Urine Color YELLOW Urine Appearance CLOUDY Urine pH 6.0 Ur Specific [place] 1.018 Urine Protein NEGATIVE Urine Glucose (UA) NEGATIVE Urine Ketones 20 H Urine Blood NEGATIVE Urine Nitrite NEGATIVE Ur Leukocyte Esterase SMALL H Blood Type A NEGATIVE Antibody Screen POSITIVE 11/06/20 08:49 WBC 14.7 H RBC 3.64 L Hgb 10.9 L Hct 32.5 L MCV 89 MCH 30.0 MCHC 33.6 RDW 13.9 Plt Count 138 L Seg Neutrophils % Urine Color Urine Appearance Urine pH Ur Specific [place] Urine Protein Urine Glucose (UA) Urine Ketones Urine Blood Urine Nitrite Ur Leukocyte Esterase Blood Type Antibody Screen Assessment and Plan(PN) - Time Spent with Patient Time with patient: Less than 15 minutes Medications reviewed and adjusted accordingly: Yes - Disposition Anticipated Discharge Disposition: Home, Self Care Anticipated Discharge Timeframe: within 24 hours
[2020-11-07] MEDS: IBUPROFEN 800 MG TABLET PO SCH ×2 (05:52→13:16)
[2020-11-07] MEDS: FERROUS SULFATE 325 MG TABLET PO SCH (10:06)
[2020-11-07] MEDS: SENNOSIDES/DOCUSATE 8.6-50 MG 1 EACH TABLET PO SCH (10:06)
[2020-11-07] MEDS: DOCUSATE SODIUM 100 MG CAPSULE PO SCH (10:06)
[2020-11-07] MEDS: PRENATAL VITAMIN W DHA CAPSULE PO SCH (10:06)
--- NOTE | 2020-11-07 12:35 | PDOC DISCHARGE SUMMARY ---
Impression - Admit/DC Date/PCP Admission Date/Primary Care Provider: 11/05/20 11:27 WASHINGTON CANNON MD Discharge Date: 11/07/20 - Assessment Summary: 24yo s/p ppd2 stable and ready for discharge. Understands warning s/s. asked questions and verbalized understanding - Additional Information Resuscitation Status: Full Code Discharge Diet: As Tolerated, Regular Discharge Activity: Activity As Tolerated, Balance Activity w/Rest, No Lifting Over 10 Pounds, Pelvic Rest, No tub bath, Walk Frequently Referrals: WASHINGTON CANNON MD [Primary Care Provider] - Prescriptions: Ibuprofen [Motrin 800 mg Tablet] 800 mg PO Q8HP PRN #20 tablet PRN Reason: Abdominal Cramping Docusate Sodium [Colace 100 mg Capsule] 100 mg PO BID #60 capsule Ferrous Sulfate [Feosol 325 mg Tablet] 325 mg PO BID #60 tablet Home Medications: Pnv No.95/Ferrous Fum/Folic AC [ Caplet] 1 tab PO DAILY 11/02/20 Docusate Sodium [Colace 100 mg Capsule] 100 mg PO BID #60 capsule 11/07/20 Ferrous Sulfate [Feosol 325 mg Tablet] 325 mg PO BID #60 tablet 11/07/20 Ibuprofen [Motrin 800 mg Tablet] 800 mg PO Q8HP PRN #20 tablet 11/07/20 Hospital Course 59. Maternal Morbidity (serious complications experinced by the mother associated with labor and delivery: None of the above Results Laboratory Results: WBC 14.7 10^3/uL (4.0-10.5) H 11/06/20 08:49 RBC 3.64 10^6/uL (3.72-5.28) L 11/06/20 08:49 Hgb 10.9 g/dL (12.0-15.5) L 11/06/20 08:49 Hct 32.5 % (36.0-47.0) L 11/06/20 08:49 MCV 89 fl (80-97) 11/06/20 08:49 MCH 30.0 pg (27.0-33.4) 11/06/20 08:49 MCHC 33.6 g/dL (32.0-36.0) 11/06/20 08:49 RDW 13.9 % (11.5-14.0) 11/06/20 08:49 Plt Count 138 10^3/uL (150-450) L 11/06/20 08:49 Lymph % (Auto) 9.7 % (13-45) L 11/05/20 11:30 Moore % (Auto) 5.6 % (3-13) 11/05/20 11:30 Eos % (Auto) 0.0 % (0-6) 11/05/20 11:30 Baso % (Auto) 0.1 % (0-2) 11/05/20 11:30 Absolute Neuts (auto) 13.5 10^3/uL (1.7-8.2) H 11/05/20 11:30 Absolute Lymphs (auto) 1.6 10^3/uL (0.5-4.7) 11/05/20 11:30 Absolute Monos (auto) 0.9 10^3/uL (0.1-1.4) 11/05/20 11:30 Absolute Eos (auto) 0.0 10^3/uL (0.0-0.6) 11/05/20 11:30 Absolute Basos (auto) 0.0 10^3/uL (0.0-0.2) 11/05/20 11:30 Seg Neutrophils % 84.6 % (42-78) H 11/05/20 11:30 Urine Color YELLOW 11/05/20 11:02 Urine Appearance CLOUDY 11/05/20 11:02 Urine pH 6.0 (5.0-9.0) 11/05/20 11:02 Ur Specific [place] 1.018 11/05/20 11:02 Urine Protein NEGATIVE mg/dL (NEGATIVE) 11/05/20 11:02 Urine Glucose (UA) NEGATIVE mg/dL (NEGATIVE) 11/05/20 11:02 Urine Ketones 20 mg/dL (NEGATIVE) H 11/05/20 11:02 Urine Blood NEGATIVE (NEGATIVE) 11/05/20 11:02 Urine Nitrite NEGATIVE (NEGATIVE) 11/05/20 11:02 Urine Bilirubin NEGATIVE (NEGATIVE) 11/05/20 11:02 Urine Urobilinogen NEGATIVE mg/dL (<2.0) 11/05/20 11:02 Ur Leukocyte Esterase SMALL (NEGATIVE) H 11/05/20 11:02 Urine Ascorbic Acid NEGATIVE (NEGATIVE) 11/05/20 11:02 Urine Opiates Screen NEGATIVE 11/05/20 11:02 Urine Methadone Screen NEGATIVE 11/05/20 11:02 Ur Barbiturates Screen NEGATIVE 11/05/20 11:02 Ur Phencyclidine Scrn NEGATIVE 11/05/20 11:02 Ur Amphetamines Screen NEGATIVE 11/05/20 11:02 U Benzodiazepines Scrn NEGATIVE 11/05/20 11:02 Urine Cocaine Screen NEGATIVE 11/05/20 11:02 U Marijuana (THC) Screen NEGATIVE 11/05/20 11:02 RPR NONREACTIVE (NONREACTIVE) 11/05/20 11:30 Blood Type A NEGATIVE 11/05/20 11:30 Antibody Screen POSITIVE 11/05/20 11:30 Antibody Identification RHOGAM INDUCED ANTI-D 11/05/20 11:30
[2020-11-07 14:57] VITALS: BP 128/69
== END 2020-11-07 17:00 | disposition home or self-care (01) | DRG 807 ==
LOC: LC 10:50 → LR 11:27 → 2S 20:30
PROVIDERS: ADMIT Obstetrics & Gynecology; ATTEND Obstetrics & Gynecology
PROC: 10E0XZZ Delivery of Products of Conception, External Approach (ICD-10-PCS; principal; 2020-11-05)
PROC: 0HB9XZZ Excision of Perineum Skin, External Approach (ICD-10-PCS; 2020-11-05)
DX: O99.52 Diseases of the respiratory system complicating childbirth (principal); Z37.0 Single live birth; O99.72 Diseases of the skin and subcutaneous tissue complicating childbirth; O69.81X0 Labor and delivery complicated by cord around neck, without compression, not applicable or unspecified; J45.909 Unspecified asthma, uncomplicated; N90.89 Other specified noninflammatory disorders of vulva and perineum; Z3A.40 40 weeks gestation of pregnancy
CPT/HCPCS: 1967; 36415; 80307; 81005; 85025; 85027; 86592; 86850; 86870; 86900; 86901; 94760; J2590; J2795; J3010; J3490